=== PATIENT | female | born 1940 | race Caucasian/White ===

== ENCOUNTER 2016-06-27 21:45 | Emergency (ER) | payer MEDICARE, OTHER ==
[2016-06-27] MEDS ORDERED: NEB-ALBUTEROL 2.5 MG/3 ML INH ONE (23:21)
== END 2016-06-28 02:42 | disposition home or self-care (01) ==
LOC: ER 21:45
CPT/HCPCS: 71020; 94640

== ENCOUNTER 2016-07-12 03:25 | Inpatient (IN) | payer MEDICARE, OTHER ==
[2016-07-12] VITALS (19 sets, daily range): BP systolic 97–132; RESP 18–24; TEMP 98.2–98.9; Ht 162.6 cm; Wt 61.2 kg
[~2016-07-12] VITALS: Ht 162.6 cm; Wt 61.2 kg
[2016-07-12] MEDS ORDERED: METHYLPRED SOD SUCC 125 MG/2 ML VIAL ONE (03:54)
[2016-07-12] MEDS ORDERED: DUONEB INH ONE (04:08)
[2016-07-12] MEDS ORDERED: CEFTRIAXONE 1 GM VIAL ONE (04:45)
[2016-07-12] MEDS ORDERED: SODIUM CHLORIDE 0.9% 100 ML IV ONE (04:45)
[2016-07-12] MEDS ORDERED: VANCOMYCIN 1,000 MG in SODIUM CHLORIDE 0.9% 250 ML IV ONE (05:35)
[2016-07-12] MEDS ORDERED: DUONEB INH PRN (05:45)
[2016-07-12] MEDS ORDERED: PHARMACY TO DOSE VANCOMYCIN IV SCH (05:45)
[2016-07-12] MEDS ORDERED: SALINE FLUSH 10 ML FLUSH PRN (05:45)
[2016-07-12] MEDS: SODIUM CHLORIDE 0.9% FLUSH BAG 500 ML IV SCH (06:00)
[2016-07-12] MEDS ORDERED: METHYLPRED SOD SUCC 125 MG/2 ML VIAL IV SCH (08:00)
[2016-07-12] MEDS: SODIUM CHLORIDE 0.9% 1,000 ML IV SCH ×2 (09:08→23:38)
[2016-07-12] MEDS: CEFTRIAXONE 1 GM in SODIUM CHLORIDE 0.9% 50 ML IV SCH (09:18)
[2016-07-12] MEDS: SALINE FLUSH 10 ML FLUSH SCH ×2 (09:18→20:00)
[2016-07-12] MEDS ORDERED: NEB-ALBUTEROL 2.5 MG/3 ML INH PRN (10:05)
[2016-07-12] MEDS ORDERED: DUONEB INH SCH (11:00)
[2016-07-12] MEDS: GUAIFENESIN ER 600 MG TABCR PO SCH ×2 (11:41→20:24)
[2016-07-12] MEDS ORDERED: DILTIAZEM 125 MG in DEXTROSE 125 ML IV PUSH ONE (14:10)
[2016-07-12] MEDS: CARDIZEM 1 MG/ML DRIP 125 ML IV SCH (14:28)
[2016-07-12] MEDS: METHYLPRED SOD SUCC 125 MG/2 ML VIAL IV SCH (16:26)
[2016-07-12] MEDS: NEB-ATROVENT INH SCH ×2 (19:46→23:30)
[2016-07-12] MEDS: APIXABAN 5 MG TAB PO SCH (20:24)
[2016-07-13] VITALS (27 sets, daily range): BP systolic 100–143; RESP 18–22; TEMP 97.7–98.5
[2016-07-13] MEDS: METHYLPRED SOD SUCC 125 MG/2 ML VIAL IV SCH ×4 (00:58→23:24)
[2016-07-13] MEDS ORDERED: MISSING DOSE XX ONE ×2 (03:55→12:25)
[2016-07-13] MEDS: CARDIZEM 1 MG/ML DRIP 125 ML IV SCH ×2 (04:02→12:36)
[2016-07-13] MEDS: NEB-XOPENEX 1.25 MG/3 ML INH PRN ×2 (05:20→15:23)
[2016-07-13] MEDS: SODIUM CHLORIDE 0.9% FLUSH BAG 500 ML IV SCH (05:48)
[2016-07-13] MEDS: VANCOMYCIN 1,000 MG in SODIUM CHLORIDE 0.9% 250 ML IV SCH (05:50)
[2016-07-13] MEDS: NEB-ATROVENT INH SCH ×3 (08:00→18:23)
[2016-07-13] MEDS: CEFTRIAXONE 1 GM in SODIUM CHLORIDE 0.9% 50 ML IV SCH (08:15)
[2016-07-13] MEDS: MEGESTROL ACE 40 MG TAB PO SCH (08:15)
[2016-07-13] MEDS: APIXABAN 5 MG TAB PO SCH ×2 (08:15→20:57)
[2016-07-13] MEDS: SALINE FLUSH 10 ML FLUSH SCH ×2 (08:15→20:57)
[2016-07-13] MEDS: GUAIFENESIN ER 600 MG TABCR PO SCH ×2 (08:16→20:57)
[2016-07-13] MEDS: METOPROLOL XL 25 MG TAB PO SCH (13:24)
[2016-07-13] MEDS: DILTIAZEM 60 MG TAB PO SCH ×3 (13:24→23:52)
[2016-07-13] MEDS: ALPRAZOLAM 0.25 MG TAB PO PRN ×2 (15:22→23:19)
[2016-07-13] MEDS ORDERED: OPTIRAY 350 100 ML VIAL HMH IV ONE (18:26)
[2016-07-14] VITALS: BP_SYST 123; RESP 20; TEMP 97.6
[2016-07-14] MEDS: NEB-XOPENEX 1.25 MG/3 ML INH PRN (02:18)
[2016-07-14 03:00] VITALS: BP_SYST 109; BP_SYST 134; RESP 18; RESP 55; TEMP 96.1
[2016-07-14] MEDS: SODIUM CHLORIDE 0.9% FLUSH BAG 500 ML IV SCH (06:09)
[2016-07-14] MEDS: VANCOMYCIN 1,000 MG in SODIUM CHLORIDE 0.9% 250 ML IV SCH (06:13)
[2016-07-14] MEDS: NEB-ATROVENT INH SCH ×3 (06:51→19:31)
[2016-07-14 07:27] VITALS: BP_SYST 118; RESP 16; TEMP 97.8
[2016-07-14] MEDS: GUAIFENESIN ER 600 MG TABCR PO SCH ×2 (08:12→21:09)
[2016-07-14] MEDS: SALINE FLUSH 10 ML FLUSH SCH ×2 (08:12→20:14)
[2016-07-14] MEDS: CEFTRIAXONE 1 GM in SODIUM CHLORIDE 0.9% 50 ML IV SCH (08:12)
[2016-07-14] MEDS: METHYLPRED SOD SUCC 125 MG/2 ML VIAL IV SCH ×2 (08:12→17:28)
[2016-07-14] MEDS: APIXABAN 5 MG TAB PO SCH ×2 (08:13→21:08)
[2016-07-14] MEDS: MEGESTROL ACE 40 MG TAB PO SCH (08:13)
[2016-07-14] MEDS: DILTIAZEM 60 MG TAB PO SCH ×3 (08:13→22:11)
[2016-07-14] MEDS: METOPROLOL XL 25 MG TAB PO SCH (08:13)
[2016-07-14 11:00] VITALS: BP_SYST 126; RESP 16; TEMP 97.6
[2016-07-14] MEDS ORDERED: VANCOMYCIN 1,000 MG in SODIUM CHLORIDE 0.9% 250 ML IV SCH (18:00)
[2016-07-14 19:10] VITALS: BP_SYST 120; RESP 18; TEMP 97.6
[2016-07-14] MEDS: Furosemide 40 MG/4 ML VIAL IV SCH (20:08)
[2016-07-14 23:00] VITALS: BP_SYST 145; RESP 18; TEMP 97.3
[2016-07-15] VITALS (8 sets, daily range): BP systolic 110–156; RESP 18–20; TEMP 97.4–98.8
[2016-07-15] MEDS: METHYLPRED SOD SUCC 125 MG/2 ML VIAL IV SCH ×2 (00:05→08:44)
[2016-07-15] MEDS: SODIUM CHLORIDE 0.9% FLUSH BAG 500 ML IV SCH (05:35)
[2016-07-15] MEDS: NEB-ATROVENT INH SCH ×3 (06:28→20:06)
[2016-07-15] MEDS: SALINE FLUSH 10 ML FLUSH SCH ×2 (08:43→20:31)
[2016-07-15] MEDS: Furosemide 40 MG/4 ML VIAL IV SCH (08:44)
[2016-07-15] MEDS: CEFTRIAXONE 1 GM in SODIUM CHLORIDE 0.9% 50 ML IV SCH (08:44)
[2016-07-15] MEDS: MEGESTROL ACE 40 MG TAB PO SCH (08:45)
[2016-07-15] MEDS: APIXABAN 5 MG TAB PO SCH ×2 (08:45→20:31)
[2016-07-15] MEDS: GUAIFENESIN ER 600 MG TABCR PO SCH ×2 (08:45→20:31)
[2016-07-15] MEDS: DILTIAZEM 60 MG TAB PO SCH ×3 (08:45→20:31)
[2016-07-15] MEDS: METOPROLOL XL 25 MG TAB PO SCH (08:45)
[2016-07-15] MEDS: METHYLPRED SOD SUCC 40 MG VIAL IV SCH (15:55)
[2016-07-16] MEDS: METHYLPRED SOD SUCC 40 MG VIAL IV SCH ×2 (00:03→09:29)
[2016-07-16 03:41] VITALS: BP_SYST 137; RESP 19; TEMP 98.2
[2016-07-16] MEDS: SODIUM CHLORIDE 0.9% FLUSH BAG 500 ML IV SCH (05:48)
[2016-07-16] MEDS: NEB-ATROVENT INH SCH ×3 (06:25→18:22)
[2016-07-16 07:38] VITALS: BP_SYST 167; RESP 18; TEMP 98.2
[2016-07-16] MEDS: CEFTRIAXONE 1 GM in SODIUM CHLORIDE 0.9% 50 ML IV SCH (09:28)
[2016-07-16] MEDS: Furosemide 40 MG/4 ML VIAL IV SCH (09:29)
[2016-07-16] MEDS: SALINE FLUSH 10 ML FLUSH SCH ×2 (09:29→19:58)
[2016-07-16] MEDS: GUAIFENESIN ER 600 MG TABCR PO SCH ×2 (09:29→19:59)
[2016-07-16] MEDS: MEGESTROL ACE 40 MG TAB PO SCH (09:30)
[2016-07-16] MEDS: DILTIAZEM 60 MG TAB PO SCH ×3 (09:30→19:59)
[2016-07-16] MEDS: APIXABAN 5 MG TAB PO SCH ×2 (09:30→19:58)
[2016-07-16] MEDS: METOPROLOL XL 25 MG TAB PO SCH (09:30)
[2016-07-16 11:18] VITALS: BP_SYST 139; RESP 18; TEMP 98.9
[2016-07-16] MEDS: PREDNISONE 20 MG TAB PO SCH (13:09)
[2016-07-16 16:02] VITALS: BP_SYST 122; RESP 18; TEMP 97.8
[2016-07-16 19:00] VITALS: BP_SYST 120; RESP 18; TEMP 98.3
[2016-07-16 23:50] VITALS: BP_SYST 129; RESP 18; TEMP 97.7
[2016-07-17 03:35] VITALS: BP_SYST 140; RESP 18; TEMP 98.2
[2016-07-17] MEDS: NEB-ATROVENT INH SCH ×2 (06:02→11:48)
[2016-07-17] MEDS: SODIUM CHLORIDE 0.9% FLUSH BAG 500 ML IV SCH (06:14)
[2016-07-17 07:30] VITALS: BP_SYST 142; RESP 18; TEMP 97.7
[2016-07-17] MEDS: SALINE FLUSH 10 ML FLUSH SCH (08:57)
[2016-07-17] MEDS: DILTIAZEM 60 MG TAB PO SCH (08:57)
[2016-07-17] MEDS: CEFTRIAXONE 1 GM in SODIUM CHLORIDE 0.9% 50 ML IV SCH (08:57)
[2016-07-17] MEDS: PREDNISONE 20 MG TAB PO SCH (08:58)
[2016-07-17] MEDS: MEGESTROL ACE 40 MG TAB PO SCH (08:58)
[2016-07-17] MEDS: APIXABAN 5 MG TAB PO SCH (08:58)
[2016-07-17] MEDS: METOPROLOL XL 25 MG TAB PO SCH (08:58)
[2016-07-17] MEDS: GUAIFENESIN ER 600 MG TABCR PO SCH (08:58)
[2016-07-17] MEDS ORDERED: Furosemide 40 MG/4 ML VIAL IV SCH (09:00)
[2016-07-17 11:39] VITALS: BP_SYST 115; RESP 16; TEMP 98.5
[2016-07-17 12:22] VITALS: BP_SYST 115; RESP 16; TEMP 98.5
[2016-07-18] MEDS ORDERED: Furosemide 40 MG TAB PO SCH (09:00)
== END 2016-07-17 15:01 | disposition home health service (06) | DRG 191 ==
LOC: ENRESERVTM → ENRESERVDT → ENRESERV → ER 03:25 → ENPENDDIS 06:04 → EMR 06:04 → PCU 06:44
PROVIDERS: ADMIT Hospitalist; ATTEND Hospitalist
DX: J44.1 Chronic obstructive pulmonary disease with (acute) exacerbation (principal); E87.1 Hypo-osmolality and hyponatremia; E87.2 Acidosis; C78.02 Secondary malignant neoplasm of left lung; C77.1 Secondary and unspecified malignant neoplasm of intrathoracic lymph nodes; C80.1 Malignant (primary) neoplasm, unspecified; E86.0 Dehydration; I48.0 Paroxysmal atrial fibrillation; I10 Essential (primary) hypertension; J44.0 Chronic obstructive pulmonary disease with (acute) lower respiratory infection; J20.9 Acute bronchitis, unspecified; I25.10 Atherosclerotic heart disease of native coronary artery without angina pectoris; E78.5 Hyperlipidemia, unspecified; K21.9 Gastro-esophageal reflux disease without esophagitis; Z79.01 Long term (current) use of anticoagulants; F41.9 Anxiety disorder, unspecified
CPT/HCPCS: 36415; 36600; 70450; 71010; 71260; 72170; 77336; 77386; 80048; 80053; 80202; 81003; 82803; 83605; 84484; 85025; 85610; 85730; 87040; 87088; 87804; 93005; 94640; 94799; 96365; 96367; 96375; 99222; 99233; 99238